=== PATIENT | female | born 1940 | race Caucasian/White ===

== ENCOUNTER → 2016-10-22 | Outpatient (CLI) | payer OTHER, BC ==
[~2016-10-22] MED LIST: ASPI81TA28 PO; ATOR-24 PO; CHOL20009 PO; LEVO50TA PO; LOSA1TAB PO; PRLSR20 PO
[2016-10-22 11:31] LABS: ALT/SGPT 31 U/L (12-78); AST/SGOT 30 U/L (15-37); BLOOD UREA NITROGEN 18 mg/dl (7-18); BUN/CREATININE RATIO 22.6 (10-20); CALCIUM 8.8 mg/dl (8.5-10.1); CARBON DIOXIDE 29 mmol/L (21-32); CHLORIDE 109 mmol/L (98-107); CREATININE 0.79 mg/dl (0.60-1.20); GLUCOSE 113 mg/dl (70-99); POTASSIUM 4.4 mmol/L (3.5-5.1); SODIUM 142 mmol/L (136-145)
[2016-10-22 11:39] LABS: ESTIMATED AVERAGE GLUCOSE 134 mg/dl; HA1C FLAG Normal (Normal)
[2016-10-22 11:42] LABS: ALB/GLOB RATIO 1.2 (0.9-2); ALKALINE PHOSPHATASE 89 U/L (45-117); CHOLESTEROL 162 mg/dl (0-200); CHOLESTEROL/HDL RATIO 2.7; HDL CHOLESTEROL 60 mg/dl; LDL CHOLESTEROL CALCULATED 88 mg/dl; TRIGLYCERIDES 70 mg/dl (0-150); VERY LOW DENSITY LIPOPROT CALC 14 mg/dl
--- NOTE | 2016-10-27 12:51 | CODING QUERY MEDICAL NECESSITY ---
CQSUPPORTING DIAGNOSIS NEEDED A supporting diagnosis is required for the test/procedure performed on this patient in order for us to be reimbursed by the patient's insurance. Please provide a supporting diagnosis for the following test/procedure listed below next to the test name along with your signature. *If there is no additional diagnosis for this patient that would support the following test/procedure please document that below next to the test/procedure. Test(s)/Procedure(s) that require a supporting diagnosis: DOS 10/22/16 VITAMIN D TEST Provider Signature: Date: Thank you Allyn Chau Health Information Management Once completed, please kindly fax back to [phone] For questions please call [phone]
== END ==
LOC: C.LABBC 08:14
PROVIDERS: ATTEND Internal Medicine
DX: E78.5 Hyperlipidemia, unspecified (principal); R73.01 Impaired fasting glucose; E03.9 Hypothyroidism, unspecified; M81.0 Age-related osteoporosis without current pathological fracture

== ENCOUNTER → 2016-12-28 | Outpatient (CLI) | payer OTHER, BC ==
--- NOTE | 2016-12-28 14:55 | MAMMOGRAPHY REPORT ---
BILATERAL DIGITAL SCREENING MAMMOGRAM WITH CAD: 12/28/2016 CLINICAL HISTORY: Routine screening. Patient has no complaints. TECHNIQUE: Bilateral CC and MLO views were obtained. Current study was also evaluated with a Computer Aided Detection (CAD) system. COMPARISON: Comparison is made to exams dated: 12/23/2015 mammogram, 12/20/2014 mammogram, 12/15/2013 ma mmogram, 12/01/2012 mammogram, 11/26/2011 mammogram, and 11/20/2010 mammogram - [facility] nter. BREAST COMPOSITION: There are scattered areas of fibroglandular density in both breasts. FINDINGS: There is a 6.6 mm nodular asymmetry in the lateral, posterior left breast, best seen on th e CC view. Although this could represent a lymph node, definitive characterization with spot renetta jamaal tomosynthesis views and possibly ultrasound are recommended. There are stable grouped round and punctate microcalcifications in the 6:00 left breast, that appears similar dating back to at least 10/31/2007, therefore likely benign. No other suspicious mass, archi tectural distortion or cluster of microcalcifications is seen. IMPRESSION: ACR BI-RADS CATEGORY 0: INCOMPLETE EVALUATION: NEED ADDITIONAL IMAGING EVALUATION The 6.6 mm nodular asymmetry in the left lateral, posterior breast needs additional evaluation. The patient will be called to schedule an appointment. Approximately 10% of breast cancers are not detected with mammography. A negative mammographic report should not delay biopsy if a clinically suggestive mass is present. Aisha Sommers M.D. ay/:12/28/2016 14:42:55 Bicycle Designer: Simona Whitt, [facility] letter sent: [facility] 0 BI-RADS Code: ACR BI-RADS Category 0: Incomplete Evaluation: Need Additional Imaging Evaluation
== END | disposition home or self-care (01) ==
LOC: C.MAMM 13:13
PROVIDERS: ATTEND Obstetrics & Gynecology
DX: Z12.31 Encounter for screening mammogram for malignant neoplasm of breast (principal); N64.9 Disorder of breast, unspecified

== ENCOUNTER → 2017-01-06 | Outpatient (CLI) | payer OTHER, BC ==
--- NOTE | 2017-01-06 13:04 | MAMMOGRAPHY REPORT ---
UNILATERAL LEFT DIGITAL DIAGNOSTIC MAMMOGRAM TOMOSYNTHESIS AND TARGETED LEFT ULTRASOUND: 01/06/2017 CLINICAL HISTORY: 76-year-old woman called back from screening mammography for a 7 x 4 mm nodular asy mmetry in the lateral posterior left breast, near the fatglandular interface. TECHNIQUE: Spot compression left CC and MLO to the digital and tomosynthesis images were obtained. COMPARISON: Comparison is made to exams dated: 12/28/2016 mammogram, 12/23/2015 mammogram, 12/20/2014 m ammogram, 12/15/2013 mammogram, 12/01/2012 mammogram, and 11/26/2011 mammogram - [facility] nter. BREAST COMPOSITION: There are scattered areas of fibroglandular density in the left breast. FINDINGS: There is partial effacement of the 7 x 5 mm nodular asymmetry in the lateral posterior left breast with the additional spot compression left CC view. No definite borders are seen on the corre sponding tomosynthesis images and this area has the appearance of normal fibroglandular tissue. No s uspicious abnormality is seen on the spot compression MLO views including tomosynthesis images. No a ssociated architectural distortion or microcalcification. Further evaluation with ultrasound was per formed. Targeted ultrasound was performed in the lateral left breast. Normal fibroglandular tissue is seen w ithout a discrete solid or cystic mass. IMPRESSION: ACR BI-RADS CATEGORY 0: INCOMPLETE EVALUATION: NEED ADDITIONAL IMAGING EVALUATION, TARG ETED ULTRASOUND ACR BI-RADS CATEGORY 0: INCOMPLETE EVALUATION: NEED ADDITIONAL IMAGING EVALUATION There is only partial effacement of the 7 x 5 mm nodular asymmetry in the lateral posterior left shahid st, without corresponding sonographic abnormality identified. This asymmetry remains indeterminate a nd further evaluation with a contrast-enhanced breast MRI is needed to exclude the possibility of a s ubtle sonographically occult enhancing mass in this area. These results and recommendations were discussed with the patient at the time of the exam. Approximately 10% of breast cancers are not detected with mammography. A negative mammographic report should not delay biopsy if a clinically suggestive mass is present. Aisha Sommers M.D. ay/:01/06/2017 10:49:14 Perforator Operator: Simona MONGE(R)(Seng), [facility] letter sent: Addl Imaging 0 BI-RADS Code: ACR BI-RADS Category 0: Incomplete Evaluation: Need Additional Imaging Evaluation Ult rasound BI-RADS: ACR BI-RADS Category 0: Incomplete Evaluation: Need Additional Imaging Evaluation
== END | disposition home or self-care (01) ==
LOC: C.MAMM 08:00
PROVIDERS: ATTEND Obstetrics & Gynecology
DX: N64.89 Other specified disorders of breast (principal)

== ENCOUNTER → 2017-01-18 | Outpatient (CLI) | payer OTHER, BC ==
[2017-01-18 15:23] LABS: BLOOD UREA NITROGEN 18 mg/dl (7-18); CREATININE 0.77 mg/dl (0.60-1.20)
== END | disposition home or self-care (01) ==
LOC: C.LABBC 10:08
PROVIDERS: ATTEND Internal Medicine
DX: R92.2 Inconclusive mammogram (principal)

== ENCOUNTER → 2017-01-19 | Outpatient (CLI) | payer OTHER, BC ==
[~2017-01-19] MED LIST changes: +GADAVIST IV PRN
--- NOTE | 2017-01-20 07:39 | MAMMOGRAPHY REPORT ---
BREAST MRI OF BOTH BREASTS : 01/19/2017 CLINICAL HISTORY: 76-year-old woman initially called back from screening mammography for a 7 x 5 mm n odular asymmetry in the lateral posterior left breast. No sonographic correlate was identified, but the asymmetry remains indeterminate. COMPARISON: Comparison is made to exams dated: 01/06/2017 ultrasound, 12/28/2016 mammogram, 12/23/2015 mammogram, 12/20/2014 mammogram, 12/15/2013 mammogram, and 12/01/2012 mammogram - [facility]. TECHNIQUE: Using a 1.5 Tammi magnet and dedicated breast coil, multisequence axial images were obtain ed through the breasts. After uneventful IV administration of 5.5 mL of Gadavist, dynamic multiphase contrast-enhanced axial images, and sagittal postcontrast were obtained. Temporal subtraction axial images and 3-D MIP images are provided. Everything was then reviewed on a 3-D workstation, [employer]. FINDINGS: There is no significant background parenchymal enhancement. The 7 x 5 mm nodular asymmetry is thought to be visualized in the lateral posterior left breast approximate 2:00 axis (axial page 6 ). This asymmetry demonstrates no abnormal enhancement and has the appearance to the remainder of the normal glandular tissue throughout both breasts. Therefore this is considered benign and no f urther close follow-up is needed at this time. Overall, there is no evidence of a suspicious enhanci ng mass, suspicious non-mass enhancement, architectural distortion or suspicious kinetics. No suspic ious axillary lymphadenopathy is identified. Recommend return to annual screening mammography radhau le. IMPRESSION: ACR BI-RADS CATEGORY 2: BENIGN There is no evidence of a suspicious enhancing mass, suspicious non-mass enhancement or suspicious ki netics in the lateral posterior left breast to correlate with the nodular mammographic asymmetry. Th is asymmetry is therefore considered benign and no further close follow-up is needed at this time. T here is no MRI evidence of malignancy in the breasts. Recommend return to annual screening mammograp hy schedule. The patient will receive written notification of the results. Aisha Sommers M.D. ay/:01/19/2017 21:58:48 Helper Coordinator: secretary bookkeeper, [facility] letter sent: Normal 1/2 BI-RADS Code: ACR BI-RADS Category 2: Benign
== END | disposition home or self-care (01) ==
LOC: C.MRI 13:00
PROVIDERS: ATTEND Internal Medicine
DX: N64.89 Other specified disorders of breast (principal)

== ENCOUNTER → 2017-09-10 | Day surgery (SDC) | payer OTHER, BC ==
[2017-08-30 11:34] VITALS: Ht 157.5 cm; Wt 56.8 kg
[~2017-09-10] VITALS: Ht 157.5 cm; Wt 56.8 kg
[~2017-09-10] MED LIST changes: +CYCL5TAB PO; -GADAVIST IV PRN; +LIDOCAINE HCL 2% 2 ML VIAL (20MG/ML) ONE; +PROPOFOL IV EMULSION 10 MG/ML 20 ML VIAL IV ONE; +SODIUM CHLORIDE 0.9% 500ML 500 ML IV ONE
--- NOTE | 2017-09-10 10:42 | Endo History and Physical ---
History & Physical Date of Service: Sep 10, 2017. Chief Complaint: History of colon polyps Referring Physician: Dr. Longo History of Present Illness 76 yo CF who presents for colonoscopy secondary to history of colon polyps. Past Medical History Osteoporosis, High Cholesterol, Heart Disease, Hypertension, Thyroid Disease Past Surgical History Hx Cardiac Surgery: No Hx Internal Defibrillator: No Hx Pacemaker: No Hx Abdominal Surgery: No Hx of Implantable Prosthesis: No Hx Post-Op Nausea and Vomiting: No Hx Cancer Surgery: No Hx Thoracic Surgery: No Hx Orthopedic: No Hx Urinary Tract Surgery: No Family History Polyp Social History Smoking Status: Former Smoker Hx Substance Use: No Hx Alcohol Use: Yes (1 GLASS OF WINE/DAY) Allergies Coded Allergies: SHELL FISH (Verified Allergy, Mild, UNKNOWN, 09/10/17) Sulfa Drugs (Verified Allergy, Unknown, JOINT PAIN, 08/30/17) Metformin (Verified Adverse Reaction, Mild, NAUSEA, 09/10/17) Current Medications Reported Home Medications Medications Dose Route/Sig Max Daily Dose Days Date Category Dose Instructions Flexeril (Cyclobenzaprine Hcl) 5 Mg Tab 5-10 Mg PO Q8H PRN 08/30/17 Reported PRN Vitamin D (Cholecalciferol) 2,000 Unit Tab 2,000 Inter.unit PO QPM 08/29/14 Reported Prilosec (Omeprazole) 20 Mg Capcr 20 Mg PO DAILY PRN 08/29/14 Reported Cozaar (Losartan Potassium) 25 Mg Tab 25 Mg PO QPM 08/29/14 Reported Synthroid (Levothyroxine Sodium) 50 Mcg Tab 50 Mcg PO QAM 08/29/14 Reported Lipitor (Atorvastatin Calcium) 40 Mg Tab 40 Mg PO QPM 08/29/14 Reported Aspirin Ec (Aspirin) 81 Mg Tab 81 Mg PO QAM 08/29/14 Reported Vital Signs Weight (Kilograms): 56.82 Height (Feet): 5 Height (Inches): 2 Physical Exam General Appearance: WD/WN, no apparent distress Respiratory/Chest: Auscultation: breath sounds normal Cardiovascular: Heart Auscultation: RRR Abdomen: Bowel Sounds: normal Inspection & Palpation: soft, non-distended, no tenderness, guarding & rebound Assessment and Plan Assessment: 76 yo CF who presents for colonoscopy secondary to history of colon polyps. Plan: Proceed with colonoscopy.
--- NOTE | 2017-09-10 11:58 | Discharge Instructions ---
Endoscopy Patient Instructions Date / Procedure(s) Performed Sep 10, 2017. Colonoscopy Allergy Information Coded Allergies: SHELL FISH (Verified Allergy, Mild, UNKNOWN, 09/10/17) Sulfa Drugs (Verified Allergy, Unknown, JOINT PAIN, 08/30/17) Metformin (Verified Adverse Reaction, Mild, NAUSEA, 09/10/17) Discharge Date / Findings Sep 10, 2017. Diverticulosis Internal hemorrhoids Medication Instructions Stopped Medication(s): ASPIRIN 09/08/17 OK to resume all medications today as prescribed Reported Home Medications Medications Dose Route/Sig Max Daily Dose Days Date Category Dose Instructions Flexeril (Cyclobenzaprine Hcl) 5 Mg Tab 5-10 Mg PO Q8H PRN 08/30/17 Reported PRN Vitamin D (Cholecalciferol) 2,000 Unit Tab 2,000 Inter.unit PO QPM 08/29/14 Reported Prilosec (Omeprazole) 20 Mg Capcr 20 Mg PO DAILY PRN 08/29/14 Reported Cozaar (Losartan Potassium) 25 Mg Tab 25 Mg PO QPM 08/29/14 Reported Synthroid (Levothyroxine Sodium) 50 Mcg Tab 50 Mcg PO QAM 08/29/14 Reported Lipitor (Atorvastatin Calcium) 40 Mg Tab 40 Mg PO QPM 08/29/14 Reported Aspirin Ec (Aspirin) 81 Mg Tab 81 Mg PO QAM 08/29/14 Reported Provider Instructions Activity Restrictions - No exercising or heavy lifting for 24 hours. - Do not drink alcohol the day of the procedure. - Do not drive a car or operate machinery until the day after the procedure. - Do not make any important decisions or sign important papers in 24 hours after the procedure. Following Day: - Return to full activity which may include returning to work/school. Diet Start your diet with liquids and light foods (jello, soup, juice, toast). Then eat your usual diet if not nauseated. Treatment For Common After Affects For mild abdominal pain, bloating, or excessive gas: - Rest - Eat lightly - Lie on right side Follow-Up Information Follow-up with DR. BRAMBILA as scheduled Anesthesia Information What You Should Know You have had a procedure that required some medicine to reduce anxiety and discomfort. This treatment is called moderate sedation. After receiving the treatment, you may be sleepy, but you will be able to breathe on your own. The effects of the treatment may last for several hours. Follow these instructions along with Activity/Diet recommendations noted above: * Do NOT do anything where dizziness or clumsiness would be dangerous. * Rest quietly at home today, then you can be up and about tomorrow. * Have a responsible person stay with you the rest of today. * You may have had an I.V. today. If so, you may take the dressing off later today. Recommendations Call your doctor if: * Trouble breathing * Continuous vomiting for more than 24 hours * Temperature above 101 degrees * Severe abdominal pain or bloating * Pain not relieved by pain medicine ordered * There is increased drainage or redness from any incision * A large amount of rectal bleeding greater than 2-3 tablespoons. (If you had a polyp/s removed or have hemorrhoids, a small amount of blood - from the rectum is to be expected.) * You have any unanswered questions or concerns. IN THE EVENT OF A SERIOUS EMERGENCY, GO TO THE NEAREST EMERGENCY ROOM Your discharge instructions were prepared by provider Brent Bautista. Patient Instructions Signature Page Shelley Lewis Patient (or Guardian) Signature/Date: I have read and understand the instructions given to me by my caregivers. Caregiver/RN/Doctor Signature/Date: The above-named patient and/or guardian has received patient instructions on this date. + Original Patient Signature Page (only) stays with chart. Please make copy for patient.
--- NOTE | 2017-09-10 12:12 | Anesthesiology Progress Note ---
Anesthesia Post Op Note Date & Time Sep 10, 2017 at 12:12 Vital Signs Pain Intensity: 0 Vital Signs Past 12 Hours Date Time Temp Pulse Resp B/P (MAP) Pulse Ox O2 Delivery O2 Flow Rate FiO2 09/10/17 10:50 36.4 53 16 172/60 (97) 99 Room Air Notes Mental Status: alert / awake / arousable, participated in evaluation Pt Amnestic to Procedure: Yes Nausea / Vomiting: adequately controlled Pain: adequately controlled Airway Patency, RR, SpO2: stable & adequate BP & HR: stable & adequate Hydration State: stable & adequate Anesthetic Complications: no major complications apparent
[2017-09-10 12:25] VITALS: BP 205/86; PULSE 59; O2SAT 100
--- NOTE | 2017-09-10 12:30 | GI REPORT ---
Procedure Date: 09/10/2017 11:02 AM Procedure: Colonoscopy Indications: High risk colon cancer surveillance: Personal history of colonic polyps Medicines: Monitored Anesthesia Care Complications: No immediate complications. Estimated Blood Loss: Estimated blood loss: none. Procedure: Pre-Anesthesia Assessment: - Prior to the procedure, a History and Physical was performed, and patient medications and allergies were reviewed. The patient's tolerance of previous anesthesia was also reviewed. The risks and benefits of the procedure and the sedation options and risks were discussed with the patient. All questions were answered, and informed consent was obtained. Prior Anticoagulants: The patient has taken aspirin, last dose was 2 days prior to procedure. ASA Grade Assessment: III - A patient with severe systemic disease. After reviewing the risks and benefits, the patient was deemed in satisfactory condition to undergo the procedure. After I obtained informed consent, the scope was passed under direct vision. Throughout the procedure, the patient's blood pressure, pulse, and oxygen saturations were monitored continuously. The Scope was introduced through the anus and advanced to the cecum, identified by appendiceal orifice and ileocecal valve. The colonoscopy was performed without difficulty. The patient tolerated the procedure well. The quality of the bowel preparation was good. The ileocecal valve, appendiceal orifice, and rectum were photographed. Findings: The perianal and digital rectal examinations were normal. Scattered small-mouthed diverticula were found in the entire colon. Non-bleeding internal hemorrhoids were found during retroflexion. The hemorrhoids were small. Impression: - Diverticulosis in the entire examined colon. - Non-bleeding internal hemorrhoids. - No specimens collected. Recommendation: - Resume previous diet. - Continue present medications. - No repeat colonoscopy due to age and the absence of advanced adenomas. - Return to primary care physician as previously scheduled. Brent Bautista DO 09/10/2017 12:29:49 PM This report has been signed electronically. Note Initiated On: 09/10/2017 11:02 AM I attest to the content of the Intraoperative Record and orders documented therein, exceptions below
== END | disposition home or self-care (01) ==
LOC: C.GI 10:17
PROVIDERS: ATTEND Internal Medicine
DX: Z12.11 Encounter for screening for malignant neoplasm of colon (principal); K57.90 Diverticulosis of intestine, part unspecified, without perforation or abscess without bleeding; K64.8 Other hemorrhoids; Z86.010 Personal history of colon polyps; I10 Essential (primary) hypertension; E78.00 Pure hypercholesterolemia, unspecified; I51.9 Heart disease, unspecified; Z91.013 Allergy to seafood; Z88.2 Allergy status to sulfonamides; Z87.891 Personal history of nicotine dependence; Z88.9 Allergy status to unspecified drugs, medicaments and biological substances; Z83.71 Family history of colonic polyps; Z79.899 Other long term (current) drug therapy; Z79.82 Long term (current) use of aspirin; Z90.89 Acquired absence of other organs

== ENCOUNTER → 2017-11-01 | Outpatient (CLI) | payer OTHER, BC ==
[~2017-11-01] MED LIST changes: -LIDOCAINE HCL 2% 2 ML VIAL (20MG/ML) ONE; -PROPOFOL IV EMULSION 10 MG/ML 20 ML VIAL IV ONE; -SODIUM CHLORIDE 0.9% 500ML 500 ML IV ONE
== END | disposition home or self-care (01) ==
LOC: C.MAMM 09:57
PROVIDERS: ATTEND Internal Medicine
DX: M85.851 Other specified disorders of bone density and structure, right thigh (principal); M81.0 Age-related osteoporosis without current pathological fracture

== ENCOUNTER → 2017-11-02 | Outpatient (CLI) | payer OTHER, BC ==
--- NOTE | 2017-11-02 15:36 | DIAGNOSTIC IMAGING REPORT ---
THORACIC SPINE 3 VIEWS ROUTINE CLINICAL HISTORY: Thoracic back pain. COMPARISON STUDY: MRI of the thoracic spine June 07, 2007. FINDINGS: Alignment of the thoracic spine is anatomic. Vertebral body heights are maintained. There is no fracture. There is mild multilevel disc space narrowing with osteophytosis. IMPRESSION: 1. No acute thoracic spine fracture or subluxation. 2. Mild multilevel degenerative disc disease of the thoracic spine. Electronically signed by: Saman Dowd M.D. 11/02/2017 3:35 PM Dictated Date/Time: 11/02/2017 3:34 PM
--- NOTE | 2017-11-02 16:09 | DIAGNOSTIC IMAGING REPORT ---
L-SPINE MIN 4 VIEWS ROUTINE CLINICAL HISTORY: Muscle spasm. Back pain. COMPARISON: None FINDINGS: There is extensive vascular calcification. Note is made of 6 mm anterolisthesis of L4 and L5, likely due to facet arthrosis. There is severe multilevel facet arthrosis. Mild to moderate multilevel disc space narrowing is noted. Sacroiliac joints are intact. IMPRESSION: 1. No lumbar spine fracture. 2. Grade I anterolisthesis of L4 and L5 likely due to facet arthrosis. 3. Mild to moderate multilevel degenerative disc disease and severe multilevel facet arthrosis. 4. Extensive vascular calcification. Electronically signed by: Saman Dowd M.D. 11/02/2017 4:07 PM Dictated Date/Time: 11/02/2017 4:06 PM
== END | disposition home or self-care (01) ==
LOC: C.RAD1850 14:57
PROVIDERS: ATTEND Nurse Practitioner
DX: M54.6 Pain in thoracic spine (principal); M62.830 Muscle spasm of back

== ENCOUNTER 2018-09-14 05:45 | Inpatient (IN) ==
--- NOTE | 2018-09-07 14:11 | PAT Medication Instructions ---
Medication Instructions Date of Service September 07, 2018 Home Medications aspirin [Aspir-81] 1 tab PO DAILY celecoxib 100 mg PO BID PRN cholecalciferol (vitamin D3) 2 cap PO QPM levothyroxine 50 mcg PO QAM losartan 25 mg PO QPM omeprazole 20 mg PO UD PRN rosuvastatin 10 mg PO QPM ASK your surgeon for instructions celecoxib 100 mg PO BID PRN ASK your prescriber and surgeon aspirin [Aspir-81] 1 tab PO DAILY Take morning of surgery With a small sip of water, OTHERWISE NOTHING TO EAT OR DRINK AFTER MIDNIGHT: levothyroxine 50 mcg PO QAM omeprazole 20 mg PO UD PRN (if needed) Take evening before surgery cholecalciferol (vitamin D3) 2 cap PO QPM losartan 25 mg PO QPM omeprazole 20 mg PO UD PRN (if needed) rosuvastatin 10 mg PO QPM Other Notes If you have any questions please call us at [phone] or [phone] or [phone] or [phone]
--- NOTE | 2018-09-08 09:51 | Anesthesiology Consultation ---
Date of Service September 08, 2018 Assessment & Plan (1) Encounter for pre-operative examination: - ASA instructions per surgeon/prescriber - Seen by PCP= 06/15/18= LLE pain complaints (subsequent workup led to vascular evaluation and upcoming procedure). - Elevated glucose on preop labs (182). No known history of diabetes. HGBA1C 6.2% on 04/18/18. Will recheck BSG AM DOS. Chart Review Chart Review: Acceptable Risk for Surgery and Patient seen in Pre Admission Testing Teaching & Discussion Pre-Anesthesia Teaching/Discussion Notes: Instructed NPO after midnight before surgery,except medications with 15 cc of water. Medication instructions provided according to the PAT guidelines. History Surgery Operation Date: 09/14/18 07:30 Proposed Procedures p Left Common Femoral Artery Endarterectomy with Patch - Candelario Earl MD Height/Weight Height: 5 ft 2 in Weight: 58.4 kg Allergies Allergy/AdvReac Type Severity Reaction Status Date / Time shellfish derived Allergy Unknown ANAPHYLAXIS Verified 09/08/18 09:48 /VOMITING metformin AdvReac Unknown NAUSEA Verified 09/05/18 10:02 Sulfa (Sulfonamide AdvReac Unknown JOINT PAIN Verified 09/08/18 09:48 Antibiotics) Medications Home Medications Medication Instructions Recorded Confirmed Last Taken aspirin [Aspir-81] 1 tab PO DAILY 09/05/18 09/05/18 09/05/18 celecoxib 100 mg PO BID PRN 09/05/18 09/05/18 Unknown cholecalciferol (vitamin D3) 2 cap PO QPM 09/05/18 09/05/18 09/04/18 [Vitamin D3] levothyroxine 50 mcg PO QAM 09/05/18 09/05/18 09/05/18 losartan 25 mg PO QPM 09/05/18 09/05/18 09/04/18 omeprazole 20 mg PO UD PRN 09/05/18 09/05/18 Unknown rosuvastatin 10 mg PO QPM 09/05/18 09/05/18 09/04/18 Past Medical History Medical History Acid reflux CONTROLLED Back muscle spasm INFREQUENT Femoral artery stenosis SEVERE (80-90%) ON LEFT; MILD STENOSIS ON RIGHT Hiatal hernia "SMALL" PER CTA 06/2018 Hyperlipidemia Hypertension Hypothyroidism Past Family History Family History Mother Family history of bladder cancer Family history of lung cancer Family history of brain cancer Past Surgical History Surgical History History of colonoscopy 09/10/17= MAC SEDATION AT [facility] History of tonsillectomy History of tubal ligation Past Anesthesia History No Hx of Anesthesia Complications and No Family Hx of Anesthesia Complications History of PONV No Motion Sickness Screening History of Motion Sickness: No Social History Smoking Status: Former smoker tobacco type: cigarettes Smoking cigarettes per day: QUIT 1994; 1/2 PPD x 40 YEARS Do You Dip or Chew Tobacco: No Hx Alcohol Use: Yes Alcohol type: wine alcohol intake frequency: 0-2 drinks per day (1 GLASS WINE/NIGHT) Hx Substance Use: No substance use type: does not use Exercise / Class Metabolic Activity III < 4 Walking/Shop/Light housework Review of Systems Patient denies chest pain, shortness of breath, cough, wheezing, palpitations. Physical Exam Vital Signs VITALS BP 138/82 P 86 TEMP 98.5 SP02 97%RA RESP 18 PHYSICAL Mildly decreased cervical extension. Full TMJ range of motion. TMD 3 finger breaths Mallampati Score 3 Dentition: intact, permanent implants and crowns "several all over" Lungs: clear throughout to auscultation Cardiac: regular rate and rhythm, I/ systolic murmur Spine: normal Carotid arteries: negative bruit Extremities: no edema Small oral opening. Testing Electrocardiogram Date: 09/08/[address]/TWA, consider inferolateral ischemia (consider inferior/anterolateral ischemia per EKG done 04/11/12; subsequent str ess ECHO done 05/02/12 was negative for myocardial ischemia at 92% MPHR.) Chest X-Ray Date: 09/08/18 Findings: + NAD Calcification of the thoracic aortic arch. Unchanged biapical pleural thickening. Stress Test Date: 05/02/12 Type: exercise Negative stress ECHO for myocardial ischemia at 92% MPHR. Indeterminate stress EKG for ischemia secondary to LVH. 7 METs. Good exercise tolerance. Moderate LVH. Type I DD. No significant valvular disease. EF 60%. Other Testing CTA Aortoiliac system= 06/28/18= Severe (80-90%) stenosis of the proximal left common femoral artery due to extensive calcified atherosclerotic plaque. Mild stenosis of the proximal left anterior tibial artery. No additional stenoses w ithin the left lower extremity. Mild stenoses within the right superficial femoral and anterior tibial arteries. No severe stenosis within the right lower extremity. Moderate atherosclerotic plaque within the abdominal aorta and branch vessels. No dissection. No aneurysm. Laboratory Results 09/08/18 10:08 09/08/18 10:08 Blood Type A Positive 09/08/18 10:08 Antibody Screen NEGATIVE 09/08/18 10:08 PT 10.5 Seconds (9.0-12.0) 09/08/18 10:08 INR 1.0 (0.9-1.1) 09/08/18 10:08 APTT 28.6 Seconds (21.0-31.0) 09/08/18 10:08
--- NOTE | 2018-09-08 10:52 | XRay Report ---
XR chest Pre-admission PA/Lat HISTORY: 77 years-old Female pat preoperative exam. No acute chest complaints COMPARISON: Chest radiograph 04/14/2012 TECHNIQUE: PA and lateral views of the chest FINDINGS: Cardiac mediastinal and hilar silhouettes are within normal limits. Calcification of the thoracic aor tic arch. No pneumothorax, pleural effusion, focal airspace consolidation or overt pulmonary edema. U nchanged biapical pleural thickening. Degenerative changes of the shoulders and spine. Bones of the c hest appear grossly intact. IMPRESSION: No acute process. The above report was generated using voice recognition software. It may contain grammatical, syntax o r spelling errors. Electronically signed by: Gerry Hubbard M.D. 09/08/2018 10:51 AM
[2018-09-08 12:20] LABS: Basophils # (auto) 0.02 K/uL (0-0.2); Basophils % (auto) 0.2 %; Eosinophils # (auto) 0.01 K/uL (0-0.5); Eosinophils % (auto) 0.1 %; Hematocrit (blood only) 38.7 % (37-47); Hemoglobin 13.1 g/dL (12.0-16.0); Immature Granulocytes # (auto) 0.01 K/uL (0.00-0.02); Immature Granulocytes % (auto) 0.1 %; Lymphocytes # (auto) 0.91 K/uL (1.2-3.4); Lymphocytes % (auto) 10.3 %; Mean Corpuscular Hgb Conc 33.9 g/dL (32-36); Mean Platelet Volume 10.2 fL (7.4-10.4); Monocytes # (auto) 0.51 K/uL (0.11-0.59); Monocytes % (auto) 5.8 %; Neutrophils # (auto) 7.34 K/uL (1.4-6.5); Neutrophils % (auto) 83.5 %; Platelet Count 178 K/uL (130-400); RDW Coefficient of Variation 13.3 % (11.5-14.5); RDW Standard Deviation 43.8 fL (36.4-46.3); Red Blood Count 4.35 M/uL (4.2-5.4)
[2018-09-08 12:30] LABS: BUN Creatinine Ratio 17.2 (10-20); Calcium 8.8 mg/dl (8.5-10.1); Creatinine Clr Calc Pharmacy 44.7 ml/min; Est GFR (African American) 79.4; Est GFR (Non-African American) 68.5; Potassium 3.8 mmol/L (3.5-5.1)
[2018-09-08 12:33] LABS: Partial Thromboplastin Ratio 1.1; Partial Thromboplastin Time 28.6 Seconds (21.0-31.0); Prothrombin Time 10.5 Seconds (9.0-12.0)
--- NOTE | 2018-09-14 05:25 | History & Physical Report ---
Date of Service September 14, 2018 Assessment & Plan (1) Atherosclerosis of left lower extremity with intermittent claudication: Patient is admitted for a left common femoral endarterectomy with patch. I have discussed the risks options and benefits of the procedure with the patient. The patient understands the risks options and benefits and agrees to the procedure. History of Present Illness Chief Complaint: Left common femoral artery stenosis Primary Care Provider: Mark Longo MD Ms. Shelley Lewis is a very pleasant 77-year-old female, who has recently started experiencing symptoms of left lower extremity claudication. She notes that she first noticed her symptoms back in the fall of 2017, when she noticed that anytime she would be on the elliptical or walking up a hill, such as when playing golf, she would note a crampy pain in her calf and sometimes into her thigh area. This would resolve immediately when she was able to rest. She denies any pain without activity or any issues with jovi in our vascular surgery clinic, we had the pleasure of meeting healing wounds on her left lower extremity. She is also totally asymptomatic with regard to her right lower extremity. She does have a history of carotid disease per her report, although we do not know the exact severity of this. She does deny any symptoms of amaurosis fugax, dysarthria, dysphasia, or sudden onset weakness or numbness on one side of her body. Other than her left lower extremity claudication, which at present is limiting to her usual lifestyle of a fairly high activity both at the gym, as well as outdoors when traveling, she was referred to us for further evaluation. Preliminary studies included an ultrasound of her left lower extrem ity that show high-grade stenosis in the proximal left common femoral artery and monophasic waveforms distal to this. CTA was also performed that showed severe 80-90% stenosis of the proximal left common femoral artery, but no additional stenoses distal to that. Allergies Allergy/AdvReac Type Severity Reaction Status Date / Time shellfish derived Allergy Unknown ANAPHYLAXIS Verified 09/08/18 09:48 /VOMITING metformin AdvReac Unknown NAUSEA Verified 09/05/18 10:02 Sulfa (Sulfonamide AdvReac Unknown JOINT PAIN Verified 09/08/18 09:48 Antibiotics) Home Medications Home Medications Medication Instructions Recorded Confirmed Type aspirin [Aspir-81] 1 tab PO DAILY 09/05/18 09/05/18 History celecoxib 100 mg PO BID PRN 09/05/18 09/05/18 History cholecalciferol (vitamin D3) 2 cap PO QPM 09/05/18 09/05/18 History [Vitamin D3] levothyroxine 50 mcg PO QAM 09/05/18 09/05/18 History losartan 25 mg PO QPM 09/05/18 09/05/18 History omeprazole 20 mg PO UD PRN 09/05/18 09/05/18 History rosuvastatin 10 mg PO QPM 09/05/18 09/05/18 History Past Med/Surg History Medical History Acid reflux CONTROLLED Back muscle spasm INFREQUENT Femoral artery stenosis SEVERE (80-90%) ON LEFT; MILD STENOSIS ON RIGHT Hiatal hernia "SMALL" PER CTA 06/2018 Hyperlipidemia Hypertension Hypothyroidism Surgical History History of colonoscopy 09/10/17= MAC SEDATION AT [facility] History of tonsillectomy History of tubal ligation Family History Mother Family history of bladder cancer Family history of lung cancer Family history of brain cancer Social History Preferred Language: Romanian Communication Ability: Effective Learning Disabilities Teacher Required: No Beliefs That Will Affect Care: None Current Living Situation: Spouse Other Information That Helps Us Care for You: No Feels Safe at Home: Yes Smoking Status: Former smoker Hx Alcohol Use: Yes Hx Substance Use: No Review of Systems All systems reviewed & are unremarkable except as noted in HPI & below Physical Exam Vital Signs (Past 24 Hours): She is a well-appearing elderly female in no acute distress. Her sclerae are anicteric and her mucous membranes are moist. Her neck is supple and there is a faint carotid bruit noted on the left. Her heart is regular rate and rhythm with no murmurs appreciated. Her lungs are clear to auscultation bilaterally. Her abdomen is soft, nontender, and nondistended. She has 2+ femoral pulses, 2+ DP, and 2+ PT pulses on the right lower extremity. She has a 1+ femoral pulse and no palpable PT or DP pulses on the left. Both extremities are similar in temperature and appearance without hair loss or any nonhealing wounds. She has no focal neurologic deficits.
[2018-09-14] MEDS ORDERED: SODIUM CHLORIDE 0.9% 1000ML IV SCH (06:00)
[2018-09-14] MEDS ORDERED: CEFAZOLIN 1000MG 1,000 MG/7.5 ML SYR IV SCH (06:00)
[2018-09-14] MEDS ORDERED: ONDANSETRON INJ 2 MG/ML 2 ML VIAL ONE (06:38)
[2018-09-14] MEDS ORDERED: DEXAMETHASONE SOD INJ 4 MG/ML VIAL ONE (06:38)
[2018-09-14] MEDS ORDERED: NEOSTIGMINE METHYLSULFATE 5 MG/5 ML SYR ONE (06:38)
[2018-09-14] MEDS ORDERED: LIDOCAINE HCL 2% 2 ML VIAL/AMP(20MG/ML) INFIL ONE (06:38)
[2018-09-14] MEDS ORDERED: GLYCOPYRROLATE 0.2 MG/ML VIAL ONE ×2 (06:38→09:40)
[2018-09-14] MEDS ORDERED: PROPOFOL IV EMULSION 10 MG/ML 20 ML VIAL IV ONE (06:38)
[2018-09-14] MEDS ORDERED: MIDAZOLAM HCL 1 MG/ML 2ML VIAL ONE (06:38)
[2018-09-14] MEDS ORDERED: fentaNYL citrate 100 MCG/2 ML VIAL ONE ×3 (06:38→09:52)
--- NOTE | 2018-09-14 07:09 | History & Physical Bridge Note ---
Date of Service September 14, 2018 History & Physical Bridge Note I have examined the patient, reviewed the History & Physical and in the interval since the performance of the History & Physical I have noted the following changes of clinical significance: no changes noted
[2018-09-14] MEDS ORDERED: HEPARIN (PORCINE) 1000 UNIT/ML 10 ML (CATH LAB USE ONLY) ONE (07:11)
[2018-09-14] MEDS ORDERED: LIDOCAINE HCL 1% 20 ML VIAL ONE (07:11)
[2018-09-14] MEDS ORDERED: PAPAVERINE HCL INJ 30 MG/ML 2 ML VIAL ONE (07:11)
[2018-09-14] MEDS ORDERED: GELATIN SPONGE SZ 100 ONE (07:12)
[2018-09-14] MEDS ORDERED: THROMBIN FOR SOLN 20000 UNIT KIT ONE (07:12)
[2018-09-14] MEDS ORDERED: IODIXANOL (VISIPAQUE) 270 MG/ML 50ML ONE (07:12)
[2018-09-14] MEDS ORDERED: BUPIVACAINE/EPINEPHRINE 0.5% MPF 1:200,000 30 ML VIAL ONE (07:12)
[2018-09-14] MEDS ORDERED: ONDANSETRON INJ 2 MG/ML 2 ML VIAL IV PRN (07:32)
[2018-09-14] MEDS ORDERED: fentaNYL citrate 100 MCG/2 ML VIAL IV PRN (07:32)
[2018-09-14] MEDS ORDERED: ePHEDrine sulfate 50 MG/ML AMP IV PRN (07:32)
[2018-09-14] MEDS ORDERED: ATROPINE SULFATE 0.1 MG/ML 10ML SYR IV PRN (07:32)
[2018-09-14] MEDS ORDERED: PHENYLEPHRINE 100MCG/ML 5ML SYR IV PRN (07:32)
[2018-09-14] MEDS ORDERED: HYDROmorphone INJ 1 MG/ML SYRINGE IV PRN (07:32)
[2018-09-14] MEDS ORDERED: CEFAZOLIN 250 MG/ML 1 GM VIAL ONE (07:56)
[2018-09-14] MEDS ORDERED: ROCURONIUM BROMIDE 10 MG/ML 5 ML VIAL ONE (08:28)
[2018-09-14] MEDS ORDERED: HEPARIN SOD (PORCINE) 1000 UNIT/ML 10 ML VIAL ONE (08:28)
--- NOTE | 2018-09-14 09:33 | Post Operative Brief Note ---
Immediate Post Op Note v1 Date of Surgery September 14, 2018 Pre & Post Diagnosis Operation Date: 09/14/18 07:30 Pre-Op Diagnosis: Left Common Femoral Artery Stenosis Post-Op Diagnosis: Left Common Femoral Artery Stenosis Procedure Operation Date: 09/14/18 07:30 Actual Procedures p Left Common Femoral Artery Endarterectomy with Patch(Left) - Candelario Earl MD Surgeon Candelario Earl MD Shooter'S Helper Shane Woody MD L.Minarchick,PAC Estimated Blood Loss 10 Findings Consistent with Post-Op Diagnosis Drains Bruce Catheter Anesthesia Type General Complications none Disposition Accompanied Patient To Recovery: No Disposition: Recovery Room
[2018-09-14] MEDS ORDERED: LABETALOL HCL IV 5 MG/ML 20ML IV ONE (09:46)
--- NOTE | 2018-09-14 10:17 | Operative Report ---
DATE OF OPERATION: 09/14/2018 PREOPERATIVE DIAGNOSES: Left lower extremity claudication, left common femoral stenosis. POSTOPERATIVE DIAGNOSES: Left lower extremity claudication, left common femoral artery stenosis. PROCEDURE: Left common femoral endarterectomy with bovine pericardial patch angioplasty. SURGEON: Dr. Candelario Earl. STEAK TENDERIZER MACHINE: Dr. Echo Woody; Marilyn De Paz PA-C. ESTIMATED BLOOD LOSS: 10 mL. ANESTHESIA: General. COMPLICATIONS: None. INDICATIONS: Ms. Shelley Lewis is a 77-year-old woman with a history of peripheral vascular disease and left lower extremity claudication. She was found to have significant left common femoral stenosis. For this reason, she was recommended to undergo left common femoral endarterectomy. The risks, benefits and alternatives were discussed with the patient and she consented to the procedure. DESCRIPTION OF PROCEDURE: The patient was taken to the operating room and placed in the supine position. Anesthesia was induced by our anesthesia colleagues. The left groin was prepped and draped in the usual sterile fashion. A safety timeout was performed and the patient, procedure, and sidedness were correctly identified. Longitudinal incision was made over the left common femoral. The subcutaneous tissues were divided with Bovie electrocautery. The femoral sheath was identified and divided. The common femoral was dissected circumferentially. SFA and profunda were identified and dissected circumferentially. Several side branches were identified and preserved. The patient was systemically anticoagulated with 5000 units of intravenous heparin. After 3 minutes, the SFA, profunda, and common femoral arteries were clamped. An 11 blade was used to make a longitudinal arteriotomy. This was extended proximally and distally with Jennings scissors. We performed our endarterectomy in the standard fashion. The lumen was irrigated with heparinized saline and small bits of plaque were removed. A bovine pericardial patch was brought into the sterile field and anastomosed to the femoral artery with 5-0 Prolene in running continuous fashion. Prior to completion of the anastomosis, all arteries were back bled, fore bled, and the wound was irrigated with heparinized saline. Following completion of the anastomosis, a single repair stitch was placed on the superior lateral quadrant for hemostasis. Following placement of the repair stitch, there was good hemostasis. Manual pressure was held over the patch for several minutes. Small areas of bleeding within the subcutaneous tissues were controlled with Bovie electrocautery. The femoral sheath was then reapproximated with a 2-0 Vicryl in a running fashion. Subcutaneous tissues were reapproximated with 2-0 Vicryl in a running fashion. A third layer was reapproximated with 3-0 Vicryl again in a running fashion. The skin was reapproximated with odessa. Sterile dressing was applied. The patient had a palpable DP and PT following surgery. She was awakened from general anesthesia and transferred to the recovery area in stable condition. There were no immediate complications. Dr. Cadnelario Earl was present for all critical elements of the case. I attest to the content of the Intraoperative Record and any orders documented therein. Any exception s are noted below.
--- NOTE | 2018-09-14 11:09 | Anesthesiology Progress Note ---
Date of Service September 14, 2018 Anesthesia Post Procedure Vital Signs Vital Signs: Temp Pulse Pulse Resp BP BP Pulse Ox 09/14/18 10:50 36.7 C 57 L 19 182/74 H 100 09/14/18 10:40 36.7 C 60 12 173/65 H 94 09/14/18 10:30 63 12 157/58 H 95 09/14/18 10:20 65 12 184/80 H 100 09/14/18 10:10 69 15 184/80 H 100 09/14/18 10:00 36.9 C 79 18 183/76 H 99 09/14/18 06:04 36.4 C L 71 20 168/80 H 177/88 H 98 Notes Mental Status: alert / awake / arousable Patient Amnestic to Procedure: Yes Nausea / Vomiting: adequately controlled Pain: adequately controlled Airway Patency, RR, SpO2: stable & adequate BP & HR: stable & adequate Hydration State: stable & adequate Anesthetic Complications: no major complications apparent Notes: Awake, doing well, no complaints. VSS
[2018-09-14] MEDS ORDERED: MoRPHine SULFATE 4 MG/ML 1 ML CARP\\VIAL IV PRN (11:23)
[2018-09-14] MEDS ORDERED: CELECOXIB 100 MG CAP PO PRN (11:23)
[2018-09-14] MEDS ORDERED: OXYCODONE/ACETAMINOPHEN 5mg/325mg TAB PO PRN (11:23)
[2018-09-14] MEDS ORDERED: PANTOprazole 40 MG TAB PO PRN (11:23)
[2018-09-14] MEDS: SODIUM CHLORIDE 0.9% 500 ML IV SCH ×3 (12:59→22:15)
[2018-09-14] MEDS ORDERED: CEFAZOLIN 1000MG 1,000 MG/7.5 ML SYR IV ONE (16:00)
[2018-09-14] MEDS ORDERED: LOSARTAN POTASSIUM 25 MG TAB PO SCH (21:00)
[2018-09-14] MEDS ORDERED: ROSUVASTATIN CALCIUM 10 MG TAB PO SCH (21:00)
[2018-09-14] MEDS ORDERED: CHOLECALCIFEROL 1,000 UNITS TAB PO SCH ×2 (21:00)
[2018-09-14] MEDS ORDERED: Nursing to Pharmacy Communication ONE (21:58)
[2018-09-15 06:21] LABS: Hematocrit (blood only) 33.2 % (37-47); Hemoglobin 11.2 g/dL (12.0-16.0); Immature Granulocytes # (auto) 0.02 K/uL (0.00-0.02); Immature Granulocytes % (auto) 0.2 %; Lymphocytes # (auto) 1.73 K/uL (1.2-3.4); Lymphocytes % (auto) 19.2 %; Mean Corpuscular Hgb Conc 33.7 g/dL (32-36); Mean Corpuscular Volume 88.8 fL (80-100); Mean Platelet Volume 9.6 fL (7.4-10.4); Monocytes # (auto) 0.54 K/uL (0.11-0.59); Neutrophils # (auto) 6.74 K/uL (1.4-6.5); Neutrophils % (auto) 74.6 %; Platelet Count 218 K/uL (130-400); RDW Coefficient of Variation 13.3 % (11.5-14.5); RDW Standard Deviation 43.1 fL (36.4-46.3); Red Blood Count 3.74 M/uL (4.2-5.4); White Blood Count 9.03 K/uL (4.8-10.8)
[2018-09-15] MEDS ORDERED: LEVOTHYROXINE SODIUM 50 MCG TABLET PO SCH (06:30)
--- NOTE | 2018-09-15 08:18 | Surgery Progress Note ---
Date of Service September 15, 2018 Assessment & Plan (1) Atherosclerosis of left lower extremity with intermittent claudication: Patient is doing extremely well postoperative day 1 from a left femoral artery endarterectomy with patch. We will ambulate her this morning. If she does well with ambulation she can be discharged later this afternoon. Subjective Patient is awake and alert. She has no complaints she claims her left leg feels much better already. She ambulated to the bathroom without any difficulty today. She is not complaining of any left leg or left groin pain. Physical Exam 2 Vital Signs (Past 24 Hours): Last Vital Signs Temp 36.5 C 09/15/18 07:14 Pulse 65 09/15/18 07:14 Resp 16 09/15/18 07:14 BP 130/66 09/15/18 07:14 Pulse Ox 97 09/15/18 07:14 On exam she is awake and alert and oriented x3. Incision of her left groin is well approximated there is no drainage present. She is got good dorsalis pedal pulse on the left which is palpable.
[2018-09-15] MEDS ORDERED: ASPIRIN 81 MG ECTAB PO SCH (09:00)
--- NOTE | 2018-09-15 09:38 | Anesthesiology Progress Note ---
Date of Service September 15, 2018 Anesthesia Post Procedure Vital Signs Vital Signs: Temp Pulse Pulse Resp BP Pulse Ox 09/15/18 07:14 36.5 C 65 16 130/66 97 09/15/18 03:29 36.7 C 71 16 124/64 97 09/14/18 22:58 36.8 C 71 16 107/59 L 97 09/14/18 19:18 36.7 C 71 17 125/64 97 09/14/18 15:06 36.4 C L 69 17 175/70 H 99 09/14/18 14:10 36.4 C L 77 16 158/80 H 99 09/14/18 13:08 74 16 165/85 H 99 09/14/18 12:08 73 16 172/80 H 97 09/14/18 11:41 65 16 175/74 H 96 09/14/18 11:10 36.6 C 67 16 174/70 H 99 09/14/18 10:50 36.7 C 57 L 19 182/74 H 100 09/14/18 10:40 36.7 C 60 12 173/65 H 94 09/14/18 10:30 63 12 157/58 H 95 09/14/18 10:20 65 12 184/80 H 100 09/14/18 10:10 69 15 184/80 H 100 09/14/18 10:00 36.9 C 79 18 183/76 H 99 Notes Mental Status: alert / awake / arousable and participated in evaluation Patient Amnestic to Procedure: Yes Nausea / Vomiting: see Notes below Pain: adequately controlled Airway Patency, RR, SpO2: stable & adequate BP & HR: stable & adequate Hydration State: stable & adequate Anesthetic Complications: no major complications apparent and Pt Satisfied with anesthetic care
[2018-09-15] MEDS ORDERED: CHOLECALCIFEROL 1,000 UNITS TAB PO SCH (21:00)
--- NOTE | 2018-09-16 07:14 | Discharge Summary ---
Date of Service September 21, 2018 Discharge Data Procedures Performed Operation Date: 09/14/18 07:30 Actual Procedures p Left Common Femoral Artery Endarterectomy with Patch(Left) - Candelario Earl MD
--- NOTE | 2018-09-16 07:14 | Discharge Summary ---
Date of Service September 21, 2018 Admission HPI Per Admitting Provider Ms. Shelley Lewis is a very pleasant 77-year-old female, who has recently started experiencing symptoms of left lower extremity claudication. She notes that she first noticed her symptoms back in the fall of 2017, when she noticed that anytime she would be on the elliptical or walking up a hill, such as when playing golf, she would note a crampy pain in her calf and sometimes into her thigh area. This would resolve immediately when she was able to rest. She denies any pain without activity or any issues with jovi in our vascular surgery clinic, we had the pleasure of meeting healing wounds on her left lower extremity. She is also totally asymptomatic with regard to her right lower extremity. She does have a history of carotid disease per her report, although we do not know the exact severity of this. She does deny any symptoms of amaurosis fugax, dysarthria, dysphasia, or sudden onset weakness or numbness on one side of her body. Other than her left lower extremity claudication, which at present is limiting to her usual lifestyle of a fairly high activity both at the gym, as well as outdoors when traveling, she was referred to us for further evaluation. Preliminary studies included an ultrasound of her left lower extremity that show high-grade stenosis in the proximal left common femoral artery and monophasic waveforms distal to this. CTA was also performed that showed severe 80-90% stenosis of the proximal left common femoral artery, but no additional stenoses distal to that. She was recommended to undergo L common femoral endarterectomy. Pt agreeable. Discharge Data Procedures Performed Operation Date: 09/14/18 07:30 Actual Procedures p Left Common Femoral Artery Endarterectomy with Patch(Left) - Candelario Earl MD
--- NOTE | 2018-09-20 08:55 | Discharge Summary ---
Date of Service September 20, 2018 Admission HPI Per Admitting Provider Ms. Shelley Lewis is a very pleasant 77-year-old female, who has recently started experiencing symptoms of left lower extremity claudication. She notes that she first noticed her symptoms back in the fall of 2017, when she noticed that anytime she would be on the elliptical or walking up a hill, such as when playing golf, she would note a crampy pain in her calf and sometimes into her thigh area. This would resolve immediately when she was able to rest. She denies any pain without activity or any issues with jovi in our vascular surgery clinic, we had the pleasure of meeting healing wounds on her left lower extremity. She is also totally asymptomatic with regard to her right lower extremity. She does have a history of carotid disease per her report, although we do not know the exact severity of this. She does deny any symptoms of amaurosis fugax, dysarthria, dysphasia, or sudden onset weakness or numbness on one side of her body. Other than her left lower extremity claudication, which at present is limiting to her usual lifestyle of a fairly high activity both at the gym, as well as outdoors when traveling, she was referred to us for further evaluation. Preliminary studies included an ultrasound of her left lower extremity that show high-grade stenosis in the proximal left common femoral artery and monophasic waveforms distal to this. CTA was also performed that showed severe 80-90% stenosis of the proximal left common femoral artery, but no additional stenoses distal to that. She was recommended to undergo L common femoral endarterectomy. Pt agreeable. Admission Exam Per Admitting Provider She is a well-appearing elderly female in no acute distress. Her sclerae are anicteric and her mucous membranes are moist. Her neck is supple and there is a faint carotid bruit noted on the left. Her heart is regular rate and rhythm with no murmurs appreciated. Her lungs are clear to auscultation bilaterally. Her abdomen is soft, nontender, and nondistended. She has 2+ femoral pulses, 2+ DP, and 2+ PT pulses on the right lower extremity. She has a 1+ femoral pulse and no palpable PT or DP pulses on the left. Both extremities are similar in temperature and appearance without hair loss or any nonhealing wounds. She has no focal neurologic deficits. Principal Diagnosis 1. s/p L common femoral endarterectomy 2. Significant LLE PAD with claudication Discharge Exam CONST: On exam she is awake and alert and oriented x3. CHEST: RRR lungs decreased but ctab ABD: soft, nontender, + bs x 4 quad EXT: Incision of her left groin is well approximated there is no drainage present. She is got good dorsalis pedal pulse on the left which is palpable. Toes with brisk cap refill Discharge Data Allergies Allergy/AdvReac Type Severity Reaction Status Date / Time shellfish derived Allergy Severe ANAPHYLAXIS Verified 09/14/18 05:59 /VOMITING metformin AdvReac Intermediate NAUSEA Verified 09/14/18 05:59 Sulfa (Sulfonamide AdvReac Intermediate JOINT PAIN Verified 09/14/18 05:59 Antibiotics) Procedures Performed Operation Date: 09/14/18 07:30 Actual Procedures p Left Common Femoral Artery Endarterectomy with Patch(Left) - Candelario Earl MD Hospital Course (1) Atherosclerosis of left lower extremity with intermittent claudication: Patient is doing extremely well postoperative day 1 from a left femoral artery endarterectomy with patch. We will ambulate her this morning. If she does well with ambulation she can be discharged later this afternoon. Total Time Total Time Spent Total Time Spent (In Minutes): 15 minutes Total Time Includes: Examination of the Patient, Discharge Planning and M edication Reconciliation Discharge Plan Discharge Items Patient Disposition: Home - Self-Care Reason For Visit: Left Common Femoral Artery Stenosis Discharge Diagnosis: Left common femoral stenosis, endarterectomy and patch of left common femoral artery Discharge Goals: Therapeutic intervention Activity: Resume your previous activity Lifting: No more than 25 pounds Lifting Comment: restriction for one week then as tolerated Bathing: May shower/bathe in 3 days Exercise/Sports: Gradually increase as tolerated Driving/Machine Use: Resume 3 days after discharge Non-emergency contact: Surgeon Call non-emergency contact if: you have any medication questions, your symptoms worsen, your pain is not controlled, your pain is worsening, your pain is unusual for you, your pain is concerning for you, your temperature is above 101.5, your wound has increased redness, your wound has increased drainage and your wound pain has increased Follow-up/Referrals: Deejay Longo MD [Primary Care Provider] - Diet: Heart Healthy Addtl Provider Instructions: ACTIVITY RECOMMENDATIONS: See Above SPECIAL CARE INSTRUCTIONS: Call your doctor if: * Temperature above 101 degrees * Pain not relieved by pain medicine ordered * There is increased drainage or redness from any incision * You have any unanswered questions or concerns. Call [phone] to schedule a follow up appointment if one not already scheduled. Prescriptions: New oxycodone-acetaminophen [Percocet] 5-325 mg Tablet 1 tab PO Q4H PRN (Reason: pain) Qty: 30 RF: 0 Continued aspirin [Aspir-81] 81 mg Tablet,Delayed Release (Dr/Ec) 1 tab PO DAILY RF: 0 losartan 25 mg Tablet 25 mg PO QPM RF: 0 omeprazole 20 mg Capsule,Delayed Release(Dr/Ec) 20 mg PO UD PRN (Reason: Acid Reflux) RF: 0 celecoxib 100 mg Capsule 100 mg PO BID PRN (Reason: BACK SPASMS) RF: 0 cholecalciferol (vitamin D3) [Vitamin D3] 1,000 unit Capsule 2 cap PO QPM RF: 0 rosuvastatin 10 mg Tablet 10 mg PO QPM RF: 0 levothyroxine 50 mcg Capsule 50 mcg PO QAM RF: 0 Stand-Alone Forms: [facility], [facility] Pain [facility] Discharge Orders: Discharge Order (Routine); Ordered 09/15/18 Ordered By: Candelario Earl Admission Data Admit Date/Time: 09/14/18 07:09 Attending Provider: Candelario Earl Admit Provider: Candelario Earl Primary Care Provider: Deejay Longo Service: Surgical Services Other Interventions: Discharge Summary Assessment (RN) Last Done: 09/15/18 12:35 DC Date/Time DO NOT enter until pt leaves facility: 09/15/18 13:50
== END 2018-09-15 13:50 | disposition home or self-care (01) | DRG 254 ==
LOC: ASU 05:45 → 3N 07:09